=== PATIENT | male | born 1995 | race Caucasian/White ===

== ENCOUNTER 2018-07-10 09:35 | Emergency (ER) | payer OTHER ==
[2018-07-10 12:03] VITALS: BP 117/47
--- NOTE | 2018-07-10 12:48 | ED ---
Head Injury - HPI Summary HPI Summary: Patient is a 23-year-old male presenting to the ED with a head injury which occurred yesterday at soccer. He states he was hit in the head, but unsure where. He thinks he may have had a brief LOC which lasted approximately 10-20 seconds. Following the head injury, he developed a headache which is been improving. Symptoms are worse with lying flat and better with sitting upright. He denies any confusion, memory loss, visual changes or disturbances, numbness or tingling. He has not taken anything for the headache over-the- counter. He has never had a concussion in the past. Denies anticoagulation medications. He is otherwise healthy. - History Of Current Complaint Chief Complaint: EDHeadInjury Stated Complaint: POSS CONCUSSION PER PT Time Seen by Provider: 07/10/18 10:48 Hx Obtained From: Patient Mechanism Of Injury: Direct Blow Onset/Duration: Started Hours Ago Onset of Pain: Minutes Severity Currently: Mild Severity Initially: Mild Pain Intensity: 1 Pain Scale Used: 0-10 Numeric Location of Head Injury: Diffuse Aggravating Factor(s): Movement Alleviating Factor(s): Rest Associated Signs And Symptoms: LOC (Time In Secs./Mins/Hrs) - 10 - Risk Factors SDH Risk Factor: Negative - Allergies/Home Medications Allergies/Adverse Reactions: Allergies Allergy/AdvReac Type Severity Reaction Status Date / Time No Known Allergies Allergy Verified 07/10/18 11:16 Home Medications: Home Medications NK [No Home Medications Reported] 07/10/18 [History Confirmed 07/10/18] PMH/Surg Hx/FS Hx/Imm Hx Previously Healthy: Yes - Immunization History Hx Pertussis Vaccination: No Immunizations Up to Date: Yes Infectious Disease History: No Infectious Disease History: Denies: Traveled Outside the [place] in Last 30 Days - Social History Occupation: Employed Part-time Lives: With Family Alcohol Use: None Hx Substance Use: No Substance Use Type: Reports: None Hx Tobacco Use: No Smoking Status (MU): Never Smoked Tobacco Review of Systems Constitutional: Negative Negative: Fever, Chills, Fatigue, Skin Diaphoresis Negative: Palpitations, Chest Pain Negative: Shortness Of Breath, Cough Genitourinary: Negative Positive: no symptoms reported, see HPI Negative: Arthralgia Skin: Negative Positive: Headache All Other Systems Reviewed And Are Negative: Yes Physical Exam Triage Information Reviewed: Yes Vital Signs On Initial Exam: Initial Vitals Temp Pulse Resp BP Pulse Ox 97.3 F 69 18 124/79 98 07/10/18 09:44 07/10/18 09:44 07/10/18 09:44 07/10/18 09:44 07/10/18 09:44 Vital Signs Reviewed: Yes Appearance: Positive: Well-Appearing, Well-Nourished Skin: Positive: Warm, Skin Color Reflects Adequate Perfusion Head/Face: Positive: Normal Head/Face Inspection Eyes: Positive: ANA, Conjunctiva Clear Neck: Positive: Supple, No Lymphadenopathy Respiratory/Lung Sounds: Positive: Breath Sounds Present Cardiovascular: Positive: Pulses are Symmetrical in both Upper and Lower Extremities Musculoskeletal: Positive: Strength/ROM Intact Neurological: Positive: Sensory/Motor Intact, Alert, Oriented to Person Place, Time, Normal Gait, Speech Normal Psychiatric: Positive: Normal, Affect/Mood Appropriate Diagnostics - Vital Signs Vital Signs Temp Pulse Resp BP Pulse Ox 07/10/18 12:18 97.4 F 63 14 117/47 100 07/10/18 11:55 97.4 F 63 14 117/47 100 07/10/18 09:44 97.3 F 69 18 124/79 98 - Laboratory Lab Statement: Any lab studies that have been ordered have been reviewed, and results considered in the medical decision making process. Head Injury Course/Dx Course Of Treatment: During the course treatment, the patient's evaluated for head injury which occurred approximately 4 PM yesterday. He did a brief LOC and continues to endorse headache. For this reason, a CT brain was obtained. This showed no acute intracranial abnormalities. Physical examination, patient is neurologically intact, gait normal, no numbness and tingling throughout. He will be diagnosed with head injury with possible concussion. He is given return precautions and brain rest precautions. He understands these and voices no other concerns at this time. He is encouraged Tylenol and ibuprofen for any discomfort. - Diagnoses Differential Diagnosis/HQI/PQRI: Concussion With LOC, Concussion Without LOC, Contusion Provider Diagnoses: Head injury Discharge - Sign-Out/Discharge Documenting (check all that apply): Patient Departure Patient Received Moderate/Deep Sedation with Procedure: No - Discharge Plan Condition: Stable Disposition: HOME Patient Education Materials: Head Injury (ED) Referrals: No Primary Care Phys,NOPCP [Primary Care Provider] - Additional Instructions: Brain rest as much as possible if you develop worsening or changing symptoms Tylenol and ibuprofen as needed for headache - Billing Disposition and Condition Condition: STABLE Disposition: Home
== END 2018-07-10 12:18 | disposition home or self-care (01) ==
LOC: ED 09:35
DX: S09.90XA Unspecified injury of head, initial encounter (principal); W51.XXXA Accidental striking against or bumped into by another person, initial encounter; Y93.66 Activity, soccer; Y92.322 Soccer field as the place of occurrence of the external cause
CPT/HCPCS: 70450; 99281